=== PATIENT | male | born 1955 | race Caucasian/White ===

== ENCOUNTER 2017-11-23 15:56 | Emergency (ER) | payer OTHER ==
[~2017-11-23 15:56] MED LIST: AMLO5TAB2 PO; ATOR40TA16 PO; DULO1CAP3 PO; LISI-515 PO; NAPR-855 PO
[2017-11-23 16:00] VITALS: BP 153/66; PULSE 71; RESP 20; TEMP 97.9; O2SAT 97
[2017-11-23] MEDS ORDERED: ORPHENADRINE INJ 60 MG/2 ML AMP IM ONE (17:45)
[2017-11-23] MEDS ORDERED: KETOROLAC TROMETHAMINE 60 MG/2 ML (IM) VIAL IM ONE (17:45)
[2017-11-23] MEDS ORDERED: ACETAMINOPHEN/HYDROcodone 325 MG/5 MG TAB PO ONE (17:45)
--- NOTE | 2017-11-23 17:46 | PD ---
HPI Chief Complaint: Back/ Neck Pain or Injury Time Seen by Provider: 17:22 Travel History International Travel<30 days: No Contact w/Intl Traveler<30days: No Traveled to known affect area: No History of Present Illness HPI 62-year-old male with PMH of chronic back pain presents to the ED for evaluation of 06/18 low back pain. Patient states that he was attempting to get out of a chair around 10:30 this morning when he had a sharp stabbing pain in the lower back. He rated as 10 out of 10. He states that the pain caused him to break out into a sweat and become nauseated. Denies radiation of the pain. He denies chest pain, palpitations, shortness of breath, abdominal pain, loss of control of his bladder or bowels, numbness, tingling, weakness, limitations to range of motion of the lower extremities. He denies previous injury to the area. He treated at home with 100 mg of tramadol and Zanaflex at around 10:30 with no improvement of symptoms. PFSH Social History Tobacco Use: No Allergies-Medications (Allergen,Severity, Reaction): Coded Allergies: No Known Allergies (Verified Adverse Reaction, Unknown, 11/23/17) Reported Meds & Prescriptions Reported Meds & Active Scripts Active Flexeril (Cyclobenzaprine HCl) 10 Mg Tab 10 Mg PO TID Naproxen 500 Mg Tab 500 Mg PO BID [place] (Hydrocodone-Acetaminophen) 5 Mg-325 Mg Tab 1 Tab PO Q6H PRN Amlodipine (Amlodipine Besylate) 5 Mg Tab 5 Mg PO DAILY Duloxetine DR (Duloxetine HCl) 60 Mg Capdr 60 Mg PO DAILY Lisinopril 20 Mg Tab 20 Mg PO DAILY Atorvastatin (Atorvastatin Calcium) 40 Mg Tab 40 Mg PO HS Naproxen 375 Mg Tab 375 Mg PO BID Review of Systems Except as stated in HPI: all other systems reviewed are Neg Physical Exam Narrative GENERAL: Well-nourished, well-developed patient. SKIN: Focused skin assessment warm/dry. HEAD: Normocephalic. EYES: No scleral icterus. No injection or drainage. NECK: Supple, trachea midline. No JVD or lymphadenopathy. CARDIOVASCULAR: Regular rate and rhythm without murmurs, gallops, or rubs. RESPIRATORY: Breath sounds equal bilaterally. No accessory muscle use. GASTROINTESTINAL: Abdomen soft, non-tender, nondistended. MUSCULOSKELETAL: No cyanosis, or edema. BACK: Nontender without obvious deformity. No CVA tenderness. Data Data Last Documented VS Vital Signs Date Time Temp Pulse Resp B/P (MAP) Pulse Ox O2 Delivery O2 Flow Rate FiO2 11/23/17 16:00 97.9 71 20 153/66 (95) 97 Orders Orders Ketorolac Inj (Toradol Inj) (11/23/17 17:45) Orphenadrine Inj (Norflex Inj) (11/23/17 17:45) Acetamin-Hydrocod 325-5 Mg ([place] 5-325 (11/23/17 17:45) Urinalysis - C+S If Indicated (11/23/17 17:46) Ed Discharge Order (11/23/17 18:58) Labs Laboratory Tests Test 11/23/17 17:50 Urine Color YELLOW Urine Turbidity CLEAR Urine pH 6.0 Urine Specific [place] 1.028 Urine Protein NEG mg/dL Urine Glucose (UA) NEG mg/dL Urine Ketones NEG mg/dL Urine Occult Blood NEG Urine Nitrite NEG Urine Bilirubin NEG Urine Leukocyte Esterase NEG Urine RBC 0-3 /hpf Urine WBC 3-5 /hpf Urine Squamous Epithelial Cells 0-5 /hpf Urine Mucus MANY /lpf Microscopic Urinalysis Comment CULT NOT INDICATED MDM Medical Decision Making Medical Screen Exam Complete: Yes Emergency Medical Condition: Yes Differential Diagnosis Acute on chronic back pain versus sciatica versus ruptured disc versus less likely cauda equina versus other Narrative Course 62-year-old male with PMH of chronic back pain presents to the ED for evaluation of 06/18 low back pain. Patient states that he was attempting to get out of a chair around 10:30 this morning when he had a sharp stabbing pain in the lower back. Denies radiation of the pain. Denies red flag symptoms. Vitals reviewed. Patient has noticed palpation in the mid back in the musculature as well. No loss of strength in the lower extremities. I discussed imaging with the patient and he opted for outpatient imaging at a further time. He is administered IM Toradol and Norflex than a single dose of [place]. On recheck he reports improvement of his symptoms. He describes short course of anti-inflammatories, muscle relaxants and [place]. We discussed reasons to return to the ED. He's otherwise follow up with his primary care provider. He indicated understanding of instructions and is agreeable a care plan. Stable and discharged home. Diagnosis Primary Impression: Acute exacerbation of chronic low back pain Referrals: Primary Care Physician Patient Instructions: Acute Low Back Pain (ED), General Instructions, Muscle Spasm (ED) Additional Instructions: Stay hydrated. A mixture of rest normal, gentle activity as best for back pain. Take the medications as they are prescribed. Do not drive while taking narcotic pain medications or muscle relaxants as they can make you drowsy. Follow-up with the primary care provider as planned. Return to the ED for worsening symptoms or any urgent or emergent medical condition. Med/Other Pt SpecificInfo: Prescription(s) given Scripts Cyclobenzaprine (Flexeril) 10 Mg Tab 10 MG PO TID for Muscle Spasm, #15 TAB 0 Refills Prov: Pierre Willams MD 11/23/17 Naproxen (Naproxen) 500 Mg Tab 500 MG PO BID, #10 TAB 0 Refills Prov: Pierre Willams MD 11/23/17 Hydrocodone-Acetaminophen ([place]) 5 Mg-325 Mg Tab 1 TAB PO Q6H Y for PAIN GREATER THAN 6, #8 TAB 0 Refills Prov: Pierre Willams MD 11/23/17 Disposition: 01 DISCHARGE HOME Condition: Stable Janel Smith Nov 23, 2017 17:46
[2017-11-23 18:05] LABS: BILIRUBIN, URINE NEG (NEG); BLOOD, URINE NEG (NEG); GLUCOSE,URINE NEG (NEG); KETONE, URINE NEG (NEG); NITRITE,URINE NEG (NEG); URINE LEUKOCYTE ESTERASE NEG (NEG)
[2017-11-23 18:18] LABS: URINE COLOR YELLOW (YELLW/STRAW)
[2017-11-23 18:19] LABS: MUCUS URINE MANY /lpf (OCC); RBC, URINE 0-3 /hpf (0-3); SQUAMOUS EPITHELIAL CELL URINE 0-5 /hpf (0-5)
[2017-11-23] MEDS ORDERED: CYCL10TA PO (18:57)
[2017-11-23] MEDS ORDERED: NORC5TAB PO (18:57)
[2017-11-23] MEDS ORDERED: NAPR500T2 PO (18:57)
== END 2017-11-23 19:17 | disposition home or self-care (01) ==
LOC: PHED 15:56 → PHEFT 19:17
DX: M54.5 Low back pain (principal); G89.29 Other chronic pain; Z79.899 Other long term (current) drug therapy
CPT/HCPCS: 81001; 96372; 99284; J1885; J2360